=== PATIENT | male | born 1960 | race Caucasian/White ===

== ENCOUNTER → 2021-10-03 | Outpatient (CLI) | payer SELFPAY ==
--- NOTE | 2021-10-03 09:16 | RAD ---
XR LUMBAR SPINE 2-3V History: LOW BACK PAIN, 2 FALLS IN LAST MONTH AND LANDED ON BUTT/BACK Comparison: None. Technique: 4 views of the lumbar spine. Findings: There are 5 non-rib bearing lumbar vertebral segments. There is a wedge compression deformity of the T11 vertebral body with approximately 60 percent anteri or height loss. Exaggerated kyphosis of the lower thoracic spine. No spondylolisthesis. Lower lumbar facet hypertrophy. Disc heights are maintained. Multilevel anterior and lateral flowing osteophytes. Mild sacroiliac sclerosis. Degenerative changes of the visualized right hip. Atherosclerotic calcification of the abdominal aorta and branches. IMPRESSION: 1. Wedge compression fracture of the T11 vertebral body with approximately 60 percent anterior heigh t loss. Electronically signed by: Pierre Mart MD (10/03/2021 9:13 AM) [id number]
== END ==
LOC: RAD 08:47
PROVIDERS: ATTEND Physician Assistant
DX: S39.012A Strain of muscle, fascia and tendon of lower back, initial encounter (principal); M48.54XA Collapsed vertebra, not elsewhere classified, thoracic region, initial encounter for fracture; M16.11 Unilateral primary osteoarthritis, right hip; M25.78 Osteophyte, vertebrae; I70.0 Atherosclerosis of aorta; M47.816 Spondylosis without myelopathy or radiculopathy, lumbar region; M40.294 Other kyphosis, thoracic region; X58.XXXA Exposure to other specified factors, initial encounter; Y93.89 Activity, other specified; Y92.89 Other specified places as the place of occurrence of the external cause; Y99.8 Other external cause status
CPT/HCPCS: 72100